=== PATIENT | female | born 1995 | race Caucasian/White ===

== ENCOUNTER 2016-09-10 14:45 | Emergency (ER) | payer BC, MEDICARE, OTHER, MEDICAID ==
[2016-09-10 15:34] LABS: ABSOLUTE EOSINOPHILS # (AUTO) 0.1 10^3/uL (0.0-0.6); ABSOLUTE LYMPHOCYTES (AUTO) 3.7 10^3/uL (0.5-4.7); ABSOLUTE MONOCYTES (AUTO) 0.4 10^3/uL (0.1-1.4); ABSOLUTE NEUT (AUTO) 4.2 10^3/uL (1.7-8.2); BASOPHILS % (AUTO) 0.5 % (0-2); EOSINOPHILS % (AUTO) 1.4 % (0-6); HEMATOCRIT 42.7 % (36.0-47.0); HEMOGLOBIN 14.4 g/dL (12.0-15.5); HGB HCT DIFFERENCE 0.5; LYMPHOCYTES % (AUTO) 43.5 % (13-45); MEAN CORPUSCULAR HEMOGLOBIN 31.4 pg (27.0-33.4); MEAN CORPUSCULAR HGB CONC 33.8 g/dL (32.0-36.0); MEAN CORPUSCULAR VOLUME 93 fl (80-97); MONOCYTES % (AUTO) 5.2 % (3-13); RED CELL DISTRIBUTION WIDTH 13.3 % (11.5-14.0); SEGMENTED NEUTROPHILS % (AUTO) 49.4 % (42-78); WHITE BLOOD COUNT 8.5 10^3/uL (4.0-10.5)
[2016-09-10 15:54] LABS: ALANINE AMINOTRANSFERASE 28 U/L (9-52); ALBUMIN 4.8 g/dL (3.5-5.0); ALKALINE PHOSPHATASE 85 U/L (38-126); ANION GAP 16 (5-19); ASPARTATE AMINO TRANSFERASE 24 U/L (14-36); BILIRUBIN,DIRECT 0.1 mg/dL (0.0-0.4); BILIRUBIN,TOTAL 0.8 mg/dL (0.2-1.3); BLOOD UREA NITROGEN 10 mg/dL (7-20); CALCIUM 10.5 mg/dL (8.4-10.2); CARBON DIOXIDE 25 mmol/L (22-30); CHLORIDE 105 mmol/L (98-107); CREATININE RESULT 0.63 mg/dL (0.52-1.25); GLUCOSE 136 mg/dL (75-110); MAGNESIUM 1.9 mg/dL (1.6-2.3); POTASSIUM 4.2 mmol/L (3.6-5.0); SODIUM 146.4 mmol/L (137-145); TOTAL PROTEIN 8.1 g/dL (6.3-8.2)
[2016-09-10 15:55] LABS: ALCOHOL < 10 mg/dL (NONE DETECTED)
--- NOTE | 2016-09-10 16:09 | ER Document Report ---
ED Seizure - General Information source: Parent - HPI Patient complains to provider of: First seizure <JAMAL BAIN - Last Filed: 09/10/16 18:20> <KOFFI MENDEZ - Last Filed: 09/12/16 01:32> - General Chief Complaint: Probable Seizure Stated Complaint: POSSIBLE SEIZURE - HPI Notes: Patient arrives with mother at the bedside. The patient is a 21-year-old female who is autistic. She is on Depakote for behavioral problems. She's never had a seizure. 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 There is no loss of bowel or bladder dysfunction. She was groggy after the event for several minutes. Mom states now she just seems very tired. Other than that she seems to be acting like her normal autistic self. No fevers. No vomiting. No recent illnesses. No rash. No obvious injuries. The patient is not able to verbalize anything at this time. Mom states that this is normal for her. (JAMAL BAIN) - Related Data Allergies/Adverse Reactions: No Known Allergies Allergy (Verified 09/10/16 14:50) Past Medical History - Social History Smoking Status: Never Smoker Family History: Reviewed & Not Pertinent Patient has suicidal ideation: No Patient has homicidal ideation: No Renal/ Medical History: Denies: Hx Peritoneal Dialysis - Immunizations Hx Diphtheria, Pertussis, Tetanus Vaccination: Yes <JAMAL BAIN - Last Filed: 09/10/16 18:20> Review of Systems - Review of Systems -: Yes All other systems reviewed and negative <JAMAL BAIN - Last Filed: 09/10/16 18:20> Physical Exam - General General appearance: Appears well, Alert - HEENT Head: Normocephalic Eyes: Normal Conjunctiva: Normal Cornea: Normal Extraocular movements intact: Yes Pupils: PERRL Ears: Normal External canal: Normal Tympanic membrane: Normal Mucous membranes: Normal Neck: Normal - Respiratory Respiratory status: No respiratory distress Breath sounds: Normal - Cardiovascular Rhythm: Regular Heart sounds: Normal auscultation Murmur: No - Abdominal Inspection: Normal Distension: No distension Bowel sounds: Normal Tenderness: Nontender Organomegaly: No organomegaly - Back Back: Normal - Extremities General upper extremity: Normal inspection, Nontender, Normal color, Normal ROM , Normal temperature General lower extremity: Normal inspection, Nontender, Normal color, Normal ROM , Normal temperature, Normal weight bearing. 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 Mom states she is acting at her baseline other than being more tired than normal. She has a nonfocal exam at this time. (JAMAL BAIN) Course - Laboratory Result Diagrams: 09/10/16 15:15 09/10/16 15:15 - Diagnostic Test Radiology reviewed: Image reviewed, Reports reviewed - CT brain without acute abnormality, chest x-ray negative <JAMAL BAIN - Last Filed: 09/10/16 18:20> - Laboratory Result Diagrams: 09/10/16 15:15 09/10/16 15:15 <KOFFI MENDEZ - Last Filed: 09/12/16 01:32> - Re-evaluation Re-evalutation: 09/10/16 18:20 Patient is nontoxic. Stable vitals. The patient had no seizure activity while in the emergency department. Her workup here is unremarkable with a negative head CT, unremarkable labs. Depakote level is currently pending. The patient is on Depakote for behavioral issues. We will unable to obtain an EKG as the patient is autistic and would not tolerate EKG would not hold still. Remainder of her workup is all unremarkable. We have monitored the patient and her time she was here and again she had no further seizures. Mother is comfortable taking her home. We will discharge the patient home with instructions to follow -up with neurology at the next available appointment. Follow-up sooner for increased seizure activity, high fevers, acting abnormal, persistent vomiting, or any further concerns. The patient's emergency department workup and current diagnosis were explained to the patient and or family. Follow-up instructions were provided. Medications if prescribed were discussed. Instructions for when to return to the emergency department including specific worrisome symptoms were discussed with the patient and/or family. (JAMAL BAIN) - Vital Signs Vital signs: Temp Pulse Resp BP Pulse Ox 79 18 91/55 L 100 09/10/16 14:50 09/10/16 18:58 09/10/16 18:59 09/10/16 18:58 - Laboratory Laboratory results interpreted by me: 09/10/16 09/10/16 09/10/16 15:15 15:15 16:20 Sodium 146.4 H Glucose 136 H Calcium 10.5 H Urine Protein 100 H Urine Ketones TRACE H Ur Leukocyte Esterase SMALL H Urine Ascorbic Acid 40 H Valproic Acid 45.5 L Discharge <JAMAL BAIN - Last Filed: 09/10/16 18:20> <KOFFI MENDEZ - Last Filed: 09/12/16 01:32> - Discharge Clinical Impression: Seizure Condition: Stable Disposition: HOME, SELF-CARE Instructions: New Seizure ([facility]) Additional Instructions: Follow-up with her family doctor Britney appointment. Follow up with neurology at the next appointment. Return for worsening symptoms, high fever, acting abnormal, persistent vomiting, or any further concerns. Referrals: ARCADIO JOHN DO [Primary Care Provider] - Follow up as needed JIN GUAMAN MD [ACTIVE STAFF] - Follow up as needed Cosign for MLP Consult
[2016-09-10 16:43] LABS: APPEARANCE,URINE SLIGHTLY-CLOUDY; BILIRUBIN,URINE NEGATIVE (NEGATIVE); GLUCOSE, URINE NEGATIVE (NEGATIVE); KETONES,URINE TRACE mg/dL (NEGATIVE); LEUKOCYTE ESTERASE,URINE SMALL (NEGATIVE); NITRITE,URINE NEGATIVE (NEGATIVE); PROTEIN,URINE 100 mg/dL (NEGATIVE); URINE SPECIFIC GRAVITY 1.024; UROBILINOGEN,URINE NEGATIVE mg/dL (<2.0)
[2016-09-10 16:57] LABS: URINE BARBITURATES SCREEN NEGATIVE; URINE METHADONE SCREEN NEGATIVE; URINE OPIATES LOW NEGATIVE; URINE PHENCYCLIDINE SCREEN NEGATIVE
[2016-09-10 19:03] VITALS: BP 91/55
== END 2016-09-10 19:03 | disposition home or self-care (01) ==
LOC: ER 14:45
DX: Z04.8 Encounter for examination and observation for other specified reasons (principal); R53.83 Other fatigue; F84.0 Autistic disorder; Z79.899 Other long term (current) drug therapy
CPT/HCPCS: 36415; 70450; 71020; 80053; 80164; 80307; 81001; 83735; 85025; 99285

== ENCOUNTER 2017-09-30 12:11 | Emergency (ER) | payer BC, MEDICARE, MEDICAID ==
[2017-09-30 12:20] VITALS: BP 118/72
--- NOTE | 2017-09-30 13:22 | ER Document Report ---
ED Medical Screen (RME) - General Chief Complaint: Seizure Stated Complaint: SEIZURE Time Seen by Provider: 09/30/17 13:20 Notes: Patient has a history of autism and is essentially nonverbal. Today at school she had seizure-like activity. She did have one seizure last year and was worked up by neurology. No cause could be found for the seizure mom states. Patient is on valproic acid for mood stabilization. And she was told to increase this and another seizure happened. No recent illnesses or problems before today. Patient had a negative head CT last year. Mom states she is worried that the child may have aspirated which caused the seizure. TRAVEL OUTSIDE OF THE [place] IN LAST 30 DAYS: No - Related Data Allergies/Adverse Reactions: Benzodiazepines Allergy (Verified 09/30/17 12:16) medroxyprogesterone [From Depo-Provera] Allergy (Verified 09/30/17 12:16) Past Medical History - Social History Chew tobacco use (# tins/day): No Frequency of alcohol use: None Drug Abuse: None Renal/ Medical History: Denies: Hx Peritoneal Dialysis - Immunizations Hx Diphtheria, Pertussis, Tetanus Vaccination: Yes Physical Exam - Vital signs Vitals: Pulse Resp BP Pulse Ox 99 20 118/72 96 09/30/17 12:17 09/30/17 12:17 09/30/17 12:17 09/30/17 12:17 Course - Vital Signs Vital signs: Temp Pulse Resp BP Pulse Ox 99 18 118/72 96 09/30/17 12:17 09/30/17 12:52 09/30/17 12:17 09/30/17 12:17
--- NOTE | 2017-09-30 14:04 | ER Document Report ---
ED General - General Chief Complaint: Seizure Stated Complaint: SEIZURE Time Seen by Provider: 09/30/17 13:20 Notes: Patient is autistic and brought in by mom. According to mother child had seizure-like activity at school today. She has had one other seizure and it was last year. She did see neurology after the seizure no cause was found. Child has recently not been ill or acting abnormal. She however did not sleep well last night per mom. Today apparently she had some generalized shaking with some blood tinged drool. It this did happen at lunch. Symptoms were apparently intermittent. Nothing known makes symptoms better or worse. They were moderate. There is no known radiation symptoms. Patient is nonverbal and is not capable of giving a history. No recent trauma. No recent rashes. TRAVEL OUTSIDE OF THE [place] IN LAST 30 DAYS: No - Related Data Allergies/Adverse Reactions: Benzodiazepines Allergy (Verified 09/30/17 12:16) medroxyprogesterone [From Depo-Provera] Allergy (Verified 09/30/17 12:16) Past Medical History - General Information source: Patient - Social History Smoking Status: Never Smoker Chew tobacco use (# tins/day): No Frequency of alcohol use: None Drug Abuse: None Family History: Reviewed & Not Pertinent Patient has suicidal ideation: No Patient has homicidal ideation: No Renal/ Medical History: Denies: Hx Peritoneal Dialysis - Immunizations Hx Diphtheria, Pertussis, Tetanus Vaccination: Yes Review of Systems - Review of Systems -: Yes ROS unobtainable due to patient's medical condition - Patient is autistic and nonverbal Physical Exam - Vital signs Vitals: Pulse Resp BP Pulse Ox 99 20 118/72 96 09/30/17 12:17 09/30/17 12:17 09/30/17 12:17 09/30/17 12:17 - General General appearance: Appears well, Alert In distress: None - HEENT Head: Normocephalic, Atraumatic Eyes: Normal Pupils: PERRL - Respiratory Respiratory status: No respiratory distress Chest status: Nontender Breath sounds: Normal Chest palpation: Normal - Cardiovascular Rhythm: Regular Heart sounds: Normal auscultation Murmur: No - Abdominal Inspection: Normal Distension: No distension Bowel sounds: Normal Tenderness: Nontender Organomegaly: No organomegaly - Back Back: Normal, Nontender - Extremities General upper extremity: Normal inspection, Nontender, Normal color, Normal ROM , Normal temperature General lower extremity: Normal inspection, Nontender, Normal color, Normal ROM , Normal temperature, Normal weight bearing. No: Martínez's sign - Neurological Cognition: Other - At baseline per mother Isai Coma Scale Eye Opening: Spontaneous Isai Coma Scale Verbal: None Isai Coma Scale Motor: Obeys Commands - Glascow is at baseline per mom Isai Coma Scale Total: 11 - Skin Skin Temperature: Warm Skin Moisture: Dry Skin Color: Normal Course - Re-evaluation Re-evalutation: 09/30/17 14:02 After being in the emergency department for approximately 30 minutes mother states that she would like to leave AGAINST MEDICAL ADVICE. She states she is called the child's neurologist at [facility]. She states they can see the child tomorrow. She states she feels this is a better plan. She states the child is back to baseline and she does not have any further concerns. I believe this to be a reasonable choice by mom. I doubt chest x- ray or laboratories would be of significant health today. Child is already on seizure medication and mom is been instructed to up the dose which seems appropriate. Mom and patient also have adequate follow-up. Mom understands the risks and benefits. Mom is capable of making judgments and decisions. - Vital Signs Vital signs: Temp Pulse Resp BP Pulse Ox 99 18 118/72 96 09/30/17 12:17 09/30/17 12:52 09/30/17 12:17 09/30/17 12:17 Discharge - Discharge Clinical Impression: Seizure, Left against medical advice Disposition: AGAINST MEDICAL ADVICE Instructions: New Seizure ([facility]) Additional Instructions: Please follow-up tomorrow with neurology as instructed.
== END 2017-09-30 14:15 | disposition left against medical advice (07) ==
LOC: ER 12:11
DX: R56.9 Unspecified convulsions (principal); Z79.899 Other long term (current) drug therapy; F84.0 Autistic disorder; Z88.8 Allergy status to other drugs, medicaments and biological substances; Z53.29 Procedure and treatment not carried out because of patient's decision for other reasons
CPT/HCPCS: 36415; 99283